=== PATIENT | female | born 1960 | race Caucasian/White ===

== ENCOUNTER 2024-03-02 11:20 | Outpatient (POV) | payer MEDICARE, MEDICAID, SELFPAY ==
--- NOTE | 2024-03-02 11:58 | A.OFFVIS_ITS ---
HPI Data of Consult Patient: new to practice Consult date: 03/02/24 Requesting Physician: Wendy Lance APRN Consult Narrative History of present illness: Ms. Chavez is a 63 year old female who presents today as a new patient. She is referral from CC: Wendy Lance APRN [facility] Disclaimer: The information contained in this section may have been updated after the patient was seen, as this information can be updated by other users. Medical History (Updated 03/02/24 @ 11:44 by Courtney Sifuentes RN) CAD (coronary artery disease) HTN (hypertension) CVA (cerebral vascular accident) Spinal stenosis Polyneuropathy Surgical History (Updated 03/02/24 @ 11:47 by Courtney Sifuentes RN) Hx of tonsillectomy H/O: hysterectomy H/O heart artery stent Family History (Updated 03/02/24 @ 11:45 by Courtney Sifuentes RN) Other Diabetes Heart disease Hypertension Meds Home Medications and Allergies New Prescriptions to Start Prescriptions: Allergies Allergy/AdvReac Type Severity Reaction Status Date / Time fluoxetine Allergy Verified 03/02/24 11:42 morphine Allergy Verified 03/02/24 11:42 naproxen Allergy Verified 03/02/24 11:42 NSAIDS (Non-Steroidal Allergy Verified 03/02/24 11:42 Anti-Inflamma propoxyphene Allergy Verified 03/02/24 11:42 Ibuprofen Allergy Unknown Uncoded 10/05/17 15:30
--- NOTE | 2024-03-02 12:09 | P.PCN_ITS ---
Procedure Date: 03/02/24 Time: 12:09 Anesthesiologist:: Wendy Lance APRN Complications:: None Pre-procedure Diagnosis:: Degenerative disc disease of lumbar spine with lumbar radiculopathy symptoms, lumbar postlaminectomy syndrome, left ankle pain/chronic pain syndrome Post-procedure Diagnosis:: Same Indications for Procedure:: Patient is a pleasant 63-year-old female who presents today as a new patient. She is a transfer from the [facility] location. She rates her pain today at a 6 out of 10. Patient does currently have a intrathecal Dilaudid pump with 1 mg/mL with a daily dose of 0.13 mg/day. Her pump is filled with the [facility] at home refill program. This is her routine 6-month follow-up. She does state that she continues to have chronic pain throughout her back and her left leg. She states that it is worse with increased ambulation. She does present today in a wheelchair for help with ambulation and does have a caregiver present with her. Patient [place] a [facility] [place] [facility] [place] [facility] in [place]. She denies any side effects from her pump. Patient is hard of hearing and does have a lot of trouble with communicating due to previous stroke that left her hemiplegia along the left side. Her Armani has been reviewed and is appropriate. Physical Exam: General: Alert and oriented x3, no acute distress, pleasant and cooperative Lungs: Respirations even and unlabored, symmetrical chest expansion Eyes: PERRL Musculoskeletal: Flexion and extension of lumbar [spine] somewhat guarded secondary to pain, [antalgic gait noted] Neurological: Speech clear, no gross sensory deficit Procedure Details:: Informed consent was obtained and the risk and benefits of the procedure were explained to the patient. Patient was taken to the procedure room where noninvasive monitoring was placed including noninvasive blood pressure cuff and pulse oximeter. Patient's pump was interrogated and was reprogrammed to Dilaudid 0.1431 mg/day. The patient tolerated the procedure well with no complications. Plan and Disposition:: Patient tolerated her intrathecal increase with no complications and was discharged neurologically intact. I have counseled the patient that we will plan on seeing her back every 6 months and that if she needs us in between visits she is more than welcome to contact us. Patient and caregiver acknowledged understanding. She will return to clinic in 6 months for reevaluation of symptoms and plan of care. Patient has been instructed to contact the clinic with any concerns before the next appointment. Dr. Pastor has reviewed this note and agrees with this plan of care. This note was dictated using voice recognition software and make contain errors or omissions. -- It Is medically necessary for this patient to continue to have their intrathecal pump refilled at regular intervals. This patient had an intrathecal pain pump implanted after meeting criteria of chronic intractable pain for greater than 3 months and failing conservative treatments. Patient has committed and been compliant to the treatment plan and all planned follow up care. Since implantation of the intrathecal pain pump, the patient has had decreased pain and been more functional. Oral medications have been reduced including intake of oral opioids. Patient continues to do well with intrathecal therapy with decrease in pain symptoms and increase in functional status. Stopping intrathecal medications can lead to life threatening withdrawal, seizures, cardiac arrest, severe pain, and possible . Pumps that are not refilled at regular intervals can be damages and cause and need for replacement. We continually titrate dose and concentration to optimize pain relief and function. We are limited in concentration for certain drugs to safely deliver medications through the pump and stay within the recommendations from the Polyanalgesic Consensus Committee Guidelines. Depending on dose and concentration these pumps may need to be refilled sooner than 3 months as we titrate.
[2024-03-02 12:50] VITALS: BP 118/65; PULSE 52; RESP 18; O2SAT 95; BMI 37.5
== END 2024-03-02 23:59 | disposition home or self-care (01) ==
PROVIDERS: Visit Provider Nurse Practitioner Family
DX: M51.16 Intervertebral disc disorders with radiculopathy, lumbar region (principal); M96.1 Postlaminectomy syndrome, not elsewhere classified; M25.572 Pain in left ankle and joints of left foot; G89.4 Chronic pain syndrome; Z97.8 Presence of other specified devices; Z45.1 Encounter for adjustment and management of infusion pump
CPT/HCPCS: 62368; 99202; G0463

== ENCOUNTER 2024-07-25 11:25 | Day surgery (SDC) | payer MEDICARE, MEDICAID, SELFPAY ==
[2024-07-25 11:45] VITALS: BP 122/60; PULSE 74; RESP 16; O2SAT 99
--- NOTE | 2024-07-25 12:25 | P.PCN_ITS ---
Procedure Date: 07/25/24 Time: 12:10 Anesthesiologist:: Keo Orellana CRNA Complications:: None Pre-procedure Diagnosis:: Degenerative disc lumbar spine multilevels. Lumbar radiculopathy. Lumbar postlaminectomy syndrome. Post-procedure Diagnosis:: Same. Indications for Procedure:: Patient is a 64-year-old female comes our clinic today for intrathecal pain pump interrogation and refill. Patient is currently being managed with hydromorphone 1 mg/mL at a rate of 0.1431 mg/day. Patient appears to be doing very well with her current settings. She is not reporting any side effects or complications. It is difficult communicating with the patient due to her inability to speak well. Obviously, patient has experienced some neurologic incident in the past. This is her first refill with us in the hospital. She comes from a local intermediate. Procedure Details:: Details of the procedure explained to the patient. The patient taken procedure and placed in sitting position. They over the pumps cleansed using chlorhexidine as a cleansing solution. The pump was interrogated. The pump was accessed with ease using a 22-gauge inch and half needle. 6.2 mL of solution was withdrawn discarded appropriate. The pump was then filled 20 cc of solution containing hydromorphone 1 mg/mL. No change in pump rate. Patient tolerated procedure without difficulty. There is no complications. Plan and Disposition:: Patient was discharged back into the care of the intermediate employee.
[2024-07-25 13:14] VITALS: BP 122/60; PULSE 74; RESP 16; O2SAT 99; BMI 28.0
== END 2024-07-25 12:00 | disposition home or self-care (01) ==
PROVIDERS: PCP Nurse Practitioner; Visit Provider Nurse Anesthetist, Certified Registered
DX: M51.16 Intervertebral disc disorders with radiculopathy, lumbar region (principal); M96.1 Postlaminectomy syndrome, not elsewhere classified
CPT/HCPCS: 95991

== ENCOUNTER 2024-10-06 08:44 | Day surgery (SDC) | payer MEDICARE, MEDICAID, SELFPAY ==
--- NOTE | 2024-10-06 09:01 | EXP.PAIN.PRO ---
Procedure Date: 10/06/24 Time: 10:14 Anesthesiologist:: Wendy Lance APRN Complications:: None Pre-procedure Diagnosis:: Degenerative disc disease of lumbar spine with lumbar radiculopathy symptoms, lumbar postlaminectomy syndrome, chronic pain syndrome Post-procedure Diagnosis:: Degenerative disc disease of lumbar spine with lumbar radiculopathy symptoms, lumbar postlaminectomy syndrome, chronic pain syndrome Indications for Procedure:: Patient is a pleasant 64-year-old female who presents today for intrathecal refill and reprogram. Patient is unable to give a pain score due to dementia and other factors. Patient is currently managed with Dilaudid 1 mg/mL with a daily dose of 0.143 mg/day. Her Armani has been reviewed. Physical Exam: General: Alert and oriented x3, no acute distress, pleasant and cooperative Lungs: Respirations even and unlabored, symmetrical chest expansion Eyes: PERRL Musculoskeletal: Flexion and extension of lumbar [spine] somewhat guarded secondary to pain, [antalgic gait noted] Neurological: Speech clear, no gross sensory deficit Procedure Details:: Informed consent was obtained and the risk and benefits of the procedure were explained to the patient. The patient had noninvasive monitoring placed including noninvasive blood pressure cuff and pulse oximeter. Patient's pump was interrogated. The area over the pump was cleansed with chlorhexidine as a cleansing solution. In sterile fashion the pump was accessed with a 22-gauge needle. Approximately 9 mls of the pump solution was removed and discarded appropriately. The pump was then refilled with 20 mL's of Dilaudid 1 mg/mL. The needle was withdrawn and a bandage was placed over the puncture site. The infusion rate was reprogrammed and continued at 0.1431 mg/day. The patient tolerated well with no complication. Plan and Disposition:: Patient tolerated her intrathecal refill and reprogram with no complications and was discharged neurologically intact. Patient is a local resident at a skilled nursing there in [place]. We did have to get verbal consent over the phone from her POA for this procedure and did have it verified by 2 nurses. Patient was unable to give us a pain scale today or be able to answer our questions appropriately due to her dementia. Patient will return to clinic on or before her next refill date. We will see the patient back in the clinic at the next intrathecal refill. Patient has been instructed to contact the clinic with any concerns before the next appointment. Dr. Pastor has reviewed this note and agrees with this plan of care. This note was dictated using voice recognition software and make contain errors or omissions. -- It Is medically necessary for this patient to continue to have their intrathecal pump refilled at regular intervals. This patient had an intrathecal pain pump implanted after meeting criteria of chronic intractable pain for greater than 3 months and failing conservative treatments. Patient has committed and been compliant to the treatment plan and all planned follow up care. Since implantation of the intrathecal pain pump, the patient has had decreased pain and been more functional. Oral medications have been reduced including intake of oral opioids. Patient continues to do well with intrathecal therapy with decrease in pain symptoms and increase in functional status. Stopping intrathecal medications can lead to life threatening withdrawal, seizures, cardiac arrest, severe pain, and possible . Pumps that are not refilled at regular intervals can be damages and cause and need for replacement. We continually titrate dose and concentration to optimize pain relief and function. We are limited in concentration for certain drugs to safely deliver medications through the pump and stay within the recommendations from the Polyanalgesic Consensus Committee Guidelines. Depending on dose and concentration these pumps may need to be refilled sooner than 3 months as we titrate. A UDS is needed to verify patient's compliance with our office pain contract. This is ordered based off specific treatments related to chronic pain with the potential to abuse certain medications.
[2024-10-06 09:28] VITALS: BP 119/56; PULSE 52; RESP 16; TEMP 36.5; O2SAT 91; BMI 31.1
[2024-10-06 10:09] VITALS: BP 119/56; PULSE 65; RESP 18; O2SAT 91
[2024-10-06 10:15] VITALS: BP 119/56; PULSE 65; RESP 18; O2SAT 91
[2024-10-06 10:17] VITALS: BP 113/75; PULSE 67; RESP 16; O2SAT 91
== END 2024-10-06 10:17 | disposition home or self-care (01) ==
PROVIDERS: PCP Nurse Practitioner; Visit Provider Nurse Practitioner Family
DX: M51.16 Intervertebral disc disorders with radiculopathy, lumbar region (principal); M96.1 Postlaminectomy syndrome, not elsewhere classified; G89.4 Chronic pain syndrome
CPT/HCPCS: 62370

== ENCOUNTER → 2024-12-29 09:31 | Day surgery (SDC) | payer MEDICARE, MEDICAID, SELFPAY ==
[2024-12-29 10:40] VITALS: BP 109/54; PULSE 64; RESP 16; TEMP 36.6; O2SAT 92; BMI 25.8
--- NOTE | 2024-12-29 10:42 | P.PCN_ITS ---
Procedure Date: 12/29/24 Time: 10:51 Anesthesiologist:: Wendy Lance APRN Complications:: None Pre-procedure Diagnosis:: Degenerative disc disease of lumbar spine with lumbar radiculopathy symptoms, chronic pain syndrome Post-procedure Diagnosis:: Same Indications for Procedure:: Patient is a pleasant 64-year-old female who presents today for intrathecal refill and reprogram. Patient is in a nursing facility and does still communicate however does have difficulty expressing herself. Patient does currently have intrathecal Dilaudid 1 mg/mL with a daily dose of 0.143 mg/day. Patient does have her sister as her POA and we did get verbal consent with 2 RNs over the phone today in order to have her pump refilled. Her Armani has been reviewed and is appropriate. Physical Exam: General: Alert and oriented x3, no acute distress, pleasant and cooperative Lungs: Respirations even and unlabored, symmetrical chest expansion Eyes: PERRL Musculoskeletal: Flexion and extension of lumbar [spine] somewhat guarded secondary to pain, [antalgic gait noted] Neurological: Speech clear, no gross sensory deficit Procedure Details:: Informed consent was obtained and the risk and benefits of the procedure were explained to the patient. The patient had noninvasive monitoring placed including noninvasive blood pressure cuff and pulse oximeter. Patient's pump was interrogated. The area over the pump was cleansed with chlorhexidine as a c leansing solution. In sterile fashion the pump was accessed with a 22-gauge needle. Approximately 7.2 mls of the pump solution was removed and discarded appropriately. The pump was then refilled with 20 mL's of Dilaudid 1 mg/mL. The needle was withdrawn and a bandage was placed over the puncture site. The infusion rate was reprogrammed and continued at its current dosage. The patient tolerated well with no complication. Plan and Disposition:: Patient tolerated the procedure well with no complications and was discharged neurologically intact. Patient will return to clinic on or before their next intrathecal refill date. We will see the patient back in the clinic at the next intrathecal refill. Patient has been instructed to contact the clinic with any concerns before the next appointment. Dr. Pastor has reviewed this note and agrees with this plan of care. This note was dictated using voice recognition software and make contain errors or omissions. -- It Is medically necessary for this patient to continue to have their intrathecal pump refilled at regular intervals. This patient had an intrathecal pain pump implanted after meeting criteria of chronic intractable pain for greater than 3 months and failing conservative treatments. Patient has committed and been compliant to the treatment plan and all planned follow up care. Since implantation of the intrathecal pain pump, the patient has had decreased pain and been more functional. Oral medications have been reduced including intake of oral opioids. Patient continues to do well with intrathecal therapy with decrease in pain symptoms and increase in functional status. Stopping intrathecal medications can lead to life threatening withdrawal, seizures, cardiac arrest, severe pain, and possible . Pumps that are not refilled at regular intervals can be damages and cause and need for replacement. We continually titrate dose and concentration to optimize pain relief and function. We are limited in concentration for certain drugs to safely deliver medications through the pump and stay within the recommendations from the Polyanalgesic Consensus Committee Guidelines. Depending on dose and concentration these pumps may need to be refilled sooner than 3 months as we titrate. A UDS is needed to verify patient's compliance with our office pain contract. This is ordered based off specific treatments related to chronic pain with the potential to abuse certain medications.
[2024-12-29 10:47] VITALS: BP 119/63; PULSE 66; RESP 18; O2SAT 92
[2024-12-29 10:48] VITALS: BP 119/63; PULSE 68; RESP 18; O2SAT 92
[2024-12-29 10:58] VITALS: BP 122/78; PULSE 61; RESP 16; TEMP 36.6; O2SAT 94
== END | disposition home or self-care (01) ==
PROVIDERS: Visit Provider Nurse Practitioner Family
DX: M51.16 Intervertebral disc disorders with radiculopathy, lumbar region (principal); G89.4 Chronic pain syndrome
CPT/HCPCS: 62370